=== PATIENT | female | born 1970 | race Caucasian/White ===

== ENCOUNTER → 2017-12-25 | Outpatient (CLI) | payer OTHER ==
[~2017-12-25] VITALS: Ht 156.2 cm; Wt 83.0 kg
[~2017-12-25] MED LIST: ONCE DAILY1 EACH PO; PRILOSEC20 MG PO; TYLENOL REGULA325 MG PO; XANAX0.25 MG PO
== END | disposition home or self-care (01) ==
LOC: AMB 11:20
PROC: 0DJ08ZZ Inspection of Upper Intestinal Tract, Via Natural or Artificial Opening Endoscopic (ICD-10-PCS; principal; 2017-12-25)
DX: K21.9 Gastro-esophageal reflux disease without esophagitis (principal); Z98.84 Bariatric surgery status; R11.10 Vomiting, unspecified; K90.9 Intestinal malabsorption, unspecified; Z87.891 Personal history of nicotine dependence